=== PATIENT | male | born 1945 | race Two or more races ===

== ENCOUNTER 2022-02-15 10:09 | Outpatient (REF) | payer OTHER, SELFPAY ==
--- NOTE | ~2022-02-15 | FL_ITS ---
EXAMINATION: FL MODIFIED BARIUM SWALLOW CLINICAL INFORMATION: Dementia, possible aspiration COMPARISON: None TECHNIQUE: Modified barium swallow examination is performed with imaging in the lateral view and the presence of the speech pathologist using a variety of barium consistencies. The exam is performed with fluoroscopic evaluation, videofluoroscopy, and some fluoroscopic spot views. Fluoroscopy time: 3.1 minutes DAP: 1.233 Gycm2 Fluoroscopic spot images: 2 FINDINGS: There is posterior lingual escape with barium pooling in the vallecula are and intermittent trace extension to piriform sinuses prior to initiation of swallowing. There is no nasopharyngeal penetration. No laryngeal penetration or aspiration. Patient did not swallow either chicken salad or cracker consistency material. Both of these were held in the roof of mouth and eventually returned without attempt at swallowing. See speech pathologist report for further assessment and recommendation. FL/FL barium swallow modified IMPRESSION: -No laryngeal penetration or aspiration. -Posterior lingual escape with filling of the vallecula and some piriform sinus filling prior to initiation of swallowing. -Patient did not swallow chicken salad or cracker consistency. -See speech pathologist report for further assessment and recommendation.
--- NOTE | 2022-02-21 14:05 | MHC.SL.IMP ---
Date of Plan of Treatment: 02/15/22 Onset of Symptoms/Illness: 02/15/22 Date Treatment Started: 02/15/22 Admitting Diagnosis: Dementia Asthma Tinnitus Post-traumatic stress disorder Allergic or vasomotor rhinitis Impaired hearing Cerebrovascular accident Traumatic brain injury Sleep apnea Restless legs Hyperlipidemia Gastroesophageal reflux disease Hiatal hernia Polyp of colon Chronic neck pain Lumbago with sciatica Sinusitis Essential hypertension Insomnia Primary Speech & Language Diagnosis: R13.12 Oropharyngeal Phase Dysphagia Reason for Today's Visit: 52584 Modified Barium Swallow Study Pre-evaluation Dietary Consistencies: Soft Foods Pre-evaluation Liquid Consistency: Thin Pre-evaluation Medication Administration: Whole with Puree Medical History: Modified Barium Swallow Study Fluoroscopic Evaluation of Swallowing Function CPT Code 39220 Evaluation Year: 2021 Reason for Study: Difficulty swallowing ?suspected aspiration; pocketing and coughing with swallowing? Referring Physician: Racquel Bejarano MD Evaluating Clinician: Martha Woodson MA, CCC-CONCESSION ATTENDANT Study Number: 1 Patient Name: Chris Wang Status: Outpatient Age: 76 Gender: Male MEDICAL HISTORY: Year of Onset or Diagnosis: 2021 Comorbidities: Dementia Asthma Tinnitus Post-traumatic stress disorder Allergic or vasomotor rhinitis Impaired hearing Cerebrovascular accident Traumatic brain injury Sleep apnea Restless legs Hyperlipidemia Gastroesophageal reflux disease Hiatal hernia Polyp of colon Chronic neck pain Lumbago with sciatica Sinusitis Essential hypertension Insomnia Current (pre-evaluation) Intake/Diet: Route: PO Diet Grade: Regular (Soft foods per ?s reports) Liquid Consistencies: Thin Pre-Study Functional Oral Intake Scale (FOIS): 5- Total oral intake of multiple consistencies requiring special preparation Pain: None reported at time of study SUBJECTIVE: Pt is a 76 year old male accompanied to this exam by his who assisted in providing background information included in this report. Pt medical history includes dementia, CVA, TBI, sleep apnea, GERD. He was referred for a modified barium swallow study by Racquel Bejarano MD to evaluate for suspected aspiration, pocketing and coughing with swallowing. Pt?s reported she prepares soft foods for him at home with Ensure and administers pills in applesauce. She reports at this time he is tolerating taking pills whole in applesauce. She reports pt holds and pockets food. Oral Motor Exam Oral-Facial Facial Miscellaneous Observations: Pt appeared to have growth on hard palate. Recommend ENT consult. Pt's reported it has been there a long time. Mouth Occlusion: Normal Oral-Facial Teeth Characteristics: Intact/Normal Oral-Facial Puff Cheeks Description: Normal Tongue Size: Normal Tongue Excursion Description: Normal Tongue Strength of Movement (against opposing pressure): Reduced Is patient able to manage secretions?: Yes Food and Liquid Trials: Oral Impairment: Lip Closure: Did not test Oral Impairment: Tongue Control During Bolus Hold: 2=Posterior escape of less than half of bolus Oral Impairment: Bolus Preparation/Mastication: Did not test Oral Impairment: Bolus Transport/Lingual Motion: 3=Repetitive/disorganized tongue motion Oral Impairment: Oral Residue: 2=Residue collection on oral structures Oral Impairment:Initiation of Pharyngeal Swallow: 3=Bolus head in pyriforms Pharyngeal Impairment: Soft Palate Elevation: 0=No bolus between soft palate (SP)/pharyngeal wall (PW) Pharyngeal Impairment: Laryngeal Elevation: 1=Partial thyroid cartilage/arytenoids to epiglottic petiole movement Pharyngeal Impairment: Anterior Hyoid Excursion: 1=Partial anterior movement Pharyngeal Impairment: Epiglottic Movement: 0=Complete inversion Pharyngeal Impairment: Laryngeal Vestibular Closure:: 0=Complete: no air/contrast in laryngeal vestibule Pharyngeal Impairment: Pharyngeal Stripping Wave: 1=Present: diminished Pharyngeal Impairment: Pharyngeal Contraction: Did not test Pharyngeal Impairment: Pharyngoesophageal Segment Openin=Complete distension and complete duration: no obstruction of flow Pharyngeal Impairment: Tongue Base (TB) Retraction: 2=Narrow column of contrast/air between TB and posterior PW Pharyngeal Impairment: Pharyngeal Residue: 1=Trace residue within or on pharyngeal structures Pharyngeal Impairment: Esophageal Clearance Upright Position: Did not test Impressions and Recommendations Clinical Observations: OBJECTIVE: Time-out: performed at 10:45 Evaluation Start: 10:30; Stop: 10:36 Patient Positioning: Seated 70-90 degrees Viewing Planes: LATERAL ONLY Contrast: Non-standardized. Varibar thin liquid was unavailable at the time of this exam. Pt trialed ?Liquid E-Z Paque Barium Sulfate? diluted to thin consistency. MBSImP ID: [id number] Results: Lip closure for intraoral bolus containment could not be assessed due to logistical reasons not related to physiologic impairment. Tongue control during bolus hold resulted in posterior escape of less than half of the bolus. Bolus preparation and mastication received the highest impairment score; solid not given due to patient safety concerns related to oral impairment. Bolus transport/lingual motion was with repetitive/disorganized motion of the tongue. Oral residue was a collection on oral structures. Initiation of the pharyngeal swallow occurred when the bolus head was in the pyriform sinuses. Soft palate elevation resulted in no bolus between the soft palate and the pharyngeal wall. Laryngeal elevation was decreased, with partial superior movement of the thyroid cartilage/partial approximation of the arytenoids to the epiglottic petiole. Anterior hyoid excursion demonstrated partial anterior movement. Epiglottic movement resulted in complete inversion. Laryngeal vestibular closure was complete, as indicated by no air or contrast within the laryngeal vestibule at the height of the swallow. Pharyngeal stripping wave was present, but diminished. Pharyngeal contraction could not be determined due to logistical reasons not related to physiologic impairment. Pharyngoesophageal segment opening was completely distended for complete duration with no obstruction of bolus flow. Tongue base retraction allowed a narrow column of contrast or air between the retracted tongue base and the posterior pharyngeal wall. Pharyngeal residue was a trace within or on pharyngeal structures. Esophageal clearance in the upright position could not be assessed due to logistical reasons not related to physiologic impairment. Oral Impairment Score: 13 (absence of score, component 1) Pharyngeal Impairment Score: 5 (absence of score, component 13) Esophageal Impairment Score: --- (absence of score, component 17) Laryngeal Penetration and Aspiration: Neither penetration nor aspiration was observed in today's study. ASSESSMENT: Clinician Assessment: This exam was conducted by a multidisciplinary team, included a speech pathologist, radiologist, and asbestos abatement technician. Pt was seated upright at 90 degrees in a chair for lateral view only. Pt trialed the following liquid and solid consistencies: thin liquid barium, pureed solid (mixture applesauce with barium paste). Pt demonstrated reduced tongue control as evidenced by posterior escape of less than half the bolus, which collected in the valleculae prior to productive tongue movement. This occurred with both sips of thin liquid and bite of pureed solid. Pt presented with a moderate and at times a significant delay in initiation with pt holding bolus in the oral cavity. Once initiated, posterior lingual movements were slowed, marked by repetitive tongue pumping movements. There was mild lingual residue with both liquid and pureed textures. Pt was given bite of chicken salad and small piece of a shortbread cookie. With both food items, pt held bolus anteriorly. There was no initiation of productive tongue movement and no chewing although pt was provided with significant cues and instruction. Eventually pt spit out both items. Pharyngeal swallow trigger was delayed, initiated as bolus head reached pyriform sinuses. There was no nasopharyngeal reflux evident during this exam. Laryngeal elevation was incomplete with partial anterior hyoid excursion. Epiglottic inversion was complete. Complete laryngeal vestibular closure. No evidence of aspiration or penetration with consumption of thin liquid and pureed solid. There as trace residue in the valleculae. No obstruction of flow through the pharyngoesophageal segment opening. Liquid Intake Recommendation: Thin Liquid Intake Strategies: Small Sips, No Straws Dietary Recommendations: Pureed (NDD1) Medication Administration: Whole with Puree Please contact the pharmacy regarding appropriate crushable or liquid drug formulations that are available whenever modified delivery is recommended. Compensatory Strategies Recommended: Sitting Upright (90 deg) No Straw Liquids from Cup Liquids from Spoon Small Bites and Sips Rate of Ingestion Change Oral Check Avoid Specific Foods Supervision during eating and or drinking: Total Assistance (1:1) Recommended Treatments: Compens. Strategy Educat. Recommendation for Speech Therapy: Outpatient Speech Therapy PLAN: Intake Recommendations: Route: PO Diet Grade: Puree Liquid Consistencies: Thin Post-Study Functional Oral Intake Scale (FOIS): 5- Total oral intake of multiple consistencies requiring special preparation Pt is recommended PUREED (NDD1) diet with THIN liquids by cup or spoon, with strict ASPIRATION PRECAUTIONS. Recommended strategies and precautions include: -Take small sips of liquid, one sip at a time. -Take sips by cup or by spoon. -Avoid ?chugging? consecutive sips of liquid. -Avoid the use of straws. -One bite at a time. -Ensure oral cavity is clear before taking/giving more bites. -Avoid mixed consistencies. -Upright 90 degree position when eating/drinking and for at least 45 minutes afterwards. -Ensure pt is awake and alert for presentation of PO. -Minimize distractions during meals. -Daily oral care. Pt is recommended 1 follow up visit with a speech pathologist to target further education pertaining to the risks of aspiration, recommended aspiration precautions and recommended diet textures. Recommend pt and caretakers to continue monitoring dysphagia. Contact PCP if there is any worsening of dysphagia, in which case pt may need re-evaluation. Suggested Referrals: The patient might benefit from a referral to: Neurology, Nutrition Services, ENT Therapy Recommendations: Therapy will be initiated Prognosis for Improvement: The prognosis for the patient to meet nutritional needs by mouth is fair based on degree of impairment, stimulability for treatment. Correctional Maintenance Technician Goals: ? The patient and/or family will participate in further education for swallowing goals. Short Term Goals: ? Education - The patient, family, caregiver will verbalize/demonstrate understanding of the results of this evaluation, the above recommendations, and the swallowing guidelines. Frequency/Duration: 1 follow-up visit Date Range for Service Requested: Timeline to reassess: Clinician - Supplemental, Miscellaneous Communication: It is important to note MBSS objective studies are snapshots in time and Patient function might vary with factors such as time of day or concomitant medical conditions. For this reason, the final treatment plan for this patient should rest with their medical care team. Additional recommendations should be considered with the totality of the Patient in mind. Thank for the opportunity to participate in the care of this patient. If you have any questions about the content of this report, please contact the [facility] at [facility]. Animal Care Taker Clinician/Clinical Fellow: No Supervisory Statement: N/A Speech Language Pathologist: Martha Woodson M.A., CCC-CONCESSION ATTENDANT
== END 2022-02-15 10:10 | disposition home or self-care (01) ==
LOC: HO.XRAY 10:09
PROVIDERS: PCP Internal Medicine; Visit Provider Internal Medicine
DX: R13.10 Dysphagia, unspecified (principal); F03.90 Unspecified dementia, unspecified severity, without behavioral disturbance, psychotic disturbance, mood disturbance, and anxiety
CPT/HCPCS: 74230; 92611